=== PATIENT | male | born 1960 | race Caucasian/White ===

== ENCOUNTER 2021-02-15 15:12 | Emergency (ER) | payer OTHER, SELFPAY ==
[2021-02-15 16:06] VITALS: BP 170/79; PULSE 78; RESP 18; TEMP 36.8; O2SAT 94; BMI 42.3
--- NOTE | 2021-02-15 17:18 | ED_ITS ---
HPI - General Adult General Chief complaint: General Medical Stated complaint: high bp Time Seen by Provider: 02/15/21 17:09 History of Present Illness HPI narrative: very pleasent 60 yo man with hx of polysubstance abuse,in recovery,was sent here [facility] because elevated BP.Pt states that he has hx of HTN he take 10 of lisinopril and .1 clonidin ,he sttes that he runned out of clonidin last dose taken Yesterday. He a no chest pain ,no SOB,no systemic symproms Onset (ago): day(s) (1) Severity: moderate Relieving factors: none Exacerbating factors: none Related Data Previous Rx's Medication Instructions Recorded clonidine HCl 0.1 mg tablet 0.1 mg PO BEDTIME #30 tab 02/15/21 lisinopril 20 mg tablet 20 mg PO DAILY #30 tab 02/15/21 quetiapine 100 mg tablet (Seroquel) 100 mg PO BEDTIME #30 tab 02/15/21 Allergies Allergy/AdvReac Type Severity Reaction Status Date / Time No Known Allergies Allergy Verified 02/15/21 16:05 Review of Systems Review of Systems: Yes all other systems are reviewed and are negative Constitutional: Constitutional: Reports no additional constitutional complaints Cardiovascular: Cardiovascular: Denies chest pain and Denies chest pain at rest Respiratory: Respiratory: Reports no additional respiratory complaints Neurologic: Reports system reviewed and no additional complaints, except as documented PMFSH Past Medical History Medical History Depression DVT (deep venous thrombosis) Heart attack High cholesterol HTN (hypertension) Opiate abuse, episodic Surgical History History of ankle surgery Hx of heart artery stent Physical Exam Vital Signs: Vital Signs: Last Vital Signs Temp 98.2 F 02/15/21 16:06 Pulse 60 02/15/21 17:41 Resp 18 02/15/21 17:41 BP 142/71 H 02/15/21 17:41 Pulse Ox 96 02/15/21 17:41 Body Mass Index 42.3 Const: General: cooperative, healthy appearing, comfortable, no acute distress, well developed and alert Nutritional Appearance: average body habitus and well nourished HENMT: Head: Yes normal to inspection and Yes No palpable skull fracture present Ears: hearing grossly normal bilaterally Neck: Neck: Yes normal visual inspection, Yes full ROM and Yes no lymphadenopathy Thyroid: Thyroid normal Chest: Chest palpation & inspection: normal inspection of the chest and normal palpation of entire chest wall Resp: Effort & Inspection: normal respiratory effort and able to speak in complete sentences Cardio: Jugular venous distension: no JVD Rate: regular rate Rhythm: regular rhythm GI: Inspection: Yes normal to inspection Palpation (GI): Soft to palpation and nontender Medical Decision Making MDM Narrative Medical decision making narrative: this pt presented with asymptomatic HTN, as per [facility] policy routine screening for elevated target organ injury (creat,ua ,ecg) is not required. therefore I do not think will do blood work Pt is asking me for refill of clonidine and also seroquel to sleep,will refill his meds Discharge Plan Discharge Clinical Impression: Hypertension Patient Disposition: Home, Self-Care Instructions: Hypertension (ED) Prescriptions: New clonidine HCl 0.1 mg tablet 0.1 mg PO BEDTIME Qty: 30 RF: 0 quetiapine [Seroquel] 100 mg tablet 100 mg PO BEDTIME Qty: 30 RF: 0 lisinopril 20 mg tablet 20 mg PO DAILY Qty: 30 RF: 0 Interventions: ED Discharge Assessment Last Done: 02/15/21 18:16
[2021-02-15 17:41] VITALS: BP 142/71; PULSE 60; RESP 18; O2SAT 96
--- NOTE | 2021-02-15 18:32 | ED.GENADULT ---
HPI - General Adult General Chief complaint: General Medical Stated complaint: high bp Time Seen by Provider: 02/15/21 17:09 History of Present Illness Relieving factors: none Exacerbating factors: none Related Data Previous Rx's Medication Instructions Recorded clonidine HCl 0.1 mg tablet 0.1 mg PO BEDTIME #30 tab 02/15/21 lisinopril 20 mg tablet 20 mg PO DAILY #30 tab 02/15/21 quetiapine 100 mg tablet (Seroquel) 100 mg PO BEDTIME #30 tab 02/15/21 Allergies Allergy/AdvReac Type Severity Reaction Status Date / Time No Known Allergies Allergy Verified 02/15/21 16:05 PMFSH Past Medical History Medical History Depression DVT (deep venous thrombosis) Heart attack High cholesterol HTN (hypertension) Opiate abuse, episodic Surgical History History of ankle surgery Hx of heart artery stent Social History Social History Advance Directives: No Advance Directives Information Provided: Yes Physical Exam Vital Signs: Vital Signs: Last Vital Signs Temp 98.2 F 02/15/21 16:06 Pulse 60 02/15/21 17:41 Resp 18 02/15/21 17:41 BP 142/71 H 02/15/21 17:41 Pulse Ox 96 02/15/21 17:41 Body Mass Index 42.3 Discharge Plan Discharge Clinical Impression: Hypertension Patient Disposition: Home, Self-Care Instructions: Hypertension (ED) Prescriptions: New clonidine HCl 0.1 mg tablet 0.1 mg PO BEDTIME Qty: 30 RF: 0 quetiapine [Seroquel] 100 mg tablet 100 mg PO BEDTIME Qty: 30 RF: 0 lisinopril 20 mg tablet 20 mg PO DAILY Qty: 30 RF: 0 Interventions: ED Discharge Assessment Last Done: 02/15/21 18:16 Discharge Date/Time: 02/15/21 18:44
== END 2021-02-15 18:44 | disposition home or self-care (01) ==
LOC: HO.ED 18:38
PROVIDERS: Emergency Provider Emergency Medicine
DX: I10 Essential (primary) hypertension (principal); E78.5 Hyperlipidemia, unspecified; F11.10 Opioid abuse, uncomplicated; Z86.718 Personal history of other venous thrombosis and embolism
CPT/HCPCS: 99283

== ENCOUNTER 2024-06-04 23:59 | Outpatient (BNV) | payer OTHER, SELFPAY | END 2024-06-05 23:59 | PROVIDERS: Visit Provider Internal Medicine | DX: I21.4 Non-ST elevation (NSTEMI) myocardial infarction (principal); I42.9 Cardiomyopathy, unspecified; Z01.810 Encounter for preprocedural cardiovascular examination | CPT/HCPCS: 99223 ==